=== PATIENT | female | born 1980 | race Caucasian/White ===

== ENCOUNTER → 2016-05-28 | Day surgery (SDC) | payer OTHER ==
[2016-05-12 14:46] LABS: BASO % 0.3 %; BASO ABS # 0.02 K/uL (0-0.2); COMPLETE YES; EOS % 1.6 %; HEMATOCRIT 39.8 % (37-47); IG% 0.2 %; LYMPH % 34.8 %; LYMPH ABS # 2.16 K/uL (1.2-3.4); MEAN CELL VOLUME 94.1 fL (80-100); MEAN CORPUSCULAR HEMOGLOBIN 31.7 pg (25-34); MEAN CORPUSCULAR HGB CONC 33.7 g/dl (32-36); MEAN PLATELET VOLUME 9.6 fL (7.4-10.4); MONO % 8.2 %; NEUT % 54.9 %; PLATELET COUNT 221 K/uL (130-400); RED BLOOD COUNT 4.23 M/uL (4.2-5.4)
--- NOTE | 2016-05-12 18:37 | HISTORY & PHYSICAL EXAMINATION ---
DATE OF ADMISSION: 05/28/2016 ADMITTING DIAGNOSIS: Desired permanent surgical sterilization. ADMISSION HISTORY: The patient is a 35-year-old 2, para 2 who is admitted for laparoscopic tubal ligation. The patient adamantly desires no further childbearing capacity and wishes for surgical sterilization. PAST MEDICAL HISTORY: OB: x2. PILE DRIVER: As above. MEDICAL: Migraine headaches. SURGICAL: None. ALLERGIES: PENICILLIN. SOCIAL HISTORY: No smoking. FAMILY HISTORY: Noncontributory. REVIEW OF SYSTEMS: As per HPI. ADMISSION PHYSICAL EXAMINATION: GENERAL: Shows a pleasant female in no acute distress. VITAL SIGNS: Blood pressure 108/78, height of 5 feet, weight of 140 pounds. HEENT: Unremarkable. NECK: Supple. LUNGS: Clear. HEART: With a regular rhythm and rate. ABDOMEN: Soft, nontender. PELVIC: Shows normal external genitalia, vaginal wall pink and rugated. Cervical os multiparous and closed. Bimanual examination shows an anterior mobile uterus. Adnexa show no palpable masses. RECTAL: Confirmatory. EXTREMITIES: Shows no deep calf tenderness. NEUROLOGIC: Grossly intact. IMPRESSION: A 35-year-old 2, para 2 for permanent surgical sterilization. PLAN: Risks, benefits and alternatives to the surgery have been discussed. While the benefits will be permanent surgical sterilization, the risks are bleeding, infection, inadvertent injury to internal organs requiring additional surgery and treatment, regret, and failure of the procedure itself, failure rate quoted at 1-3%. The patient understands that. Permit has been signed and she wishes to proceed.
[2016-05-14 15:22] VITALS: Ht 151.1 cm; Wt 61.4 kg
[~2016-05-28] VITALS: Ht 151.1 cm; Wt 61.4 kg
[~2016-05-28] MED LIST: AMIT10TA6 PO; ATROPINE SULFATE 0.1 MG/ML 5ML SYR IV PRN; DEXAMETHASONE SOD INJ 4 MG/ML VIAL IV PRN; DEXAMETHASONE SOD INJ 4 MG/ML VIAL ONE; EpHEDrine SULFATE INJ 50 MG/ML AMP IV PRN; FENTANYL CITRATE INJ 50 MCG/1 ML 2 ML VIAL IV PRN; FENTANYL CITRATE INJ 50 MCG/1 ML 2 ML VIAL ONE; GLYCOPYRROLATE INJ 0.2 MG/ML VIAL ONE; IBUPROFEN 600 MG TAB PO PRN; KETOROLAC TROMETHAMINE 30 MG/ML VIAL IV. PRN; LABETALOL HCL IV 5 MG/ML 20ML IV PRN; LACTATED RINGER'S 1000ML 1,000 ML IV SCH; LIDOCAINE HCL 2% 2 ML VIAL (20MG/ML) ONE; METOCLOPRAMIDE HCL INJ 5 MG/ML 2 ML VIAL IV PRN; MIDAZOLAM HCL 1 MG/ML 2ML VIAL ONE; MoRPHine SULFATE 10 MG/ML CARP/VIAL IV PRN; NEOSTIGMINE METHYLSULFATE 5 MG/5 ML SYR ONE; ONDANSETRON INJ 2 MG/ML 2 ML VIAL IV PRN; ONDANSETRON INJ 2 MG/ML 2 ML VIAL ONE; OXYC-57 PO; OXYCODONE/ACETAMINOPHEN 5-325 TAB PO PRN; PHENYLEPHRINE 100MCG/ML 5ML SYR IV PRN; PROPOFOL IV EMULSION 10 MG/ML 20 ML VIAL IV ONE; ROCURONIUM BROMIDE 10 MG/ML 5 ML VIAL ONE; SODIUM CHLORIDE 0.9% 1000ML 1,000 ML IV SCH
--- NOTE | 2016-05-28 07:59 | History & Physical Bridge - SC ---
H&P Re-Evaluation Bridge Note: I have examined the patient, reviewed the History & Physical and in the interval since the performance of the History & Physical I have noted the following changes of clinical significance: No changes noted
--- NOTE | 2016-05-28 08:44 | [facility] Post Operative Brief Note ---
Immediate Operative Summary Operative Date May 28, 2016. Pre-Operative Diagnosis Desires Sterilization Post-Operative Diagnosis Same Procedure(s) Performed Laparoscopic Tubal Sterilization Surgeon Dr Bonilla [employer] House Broker Surgeon(s) None Estimated Blood Loss Minimal Findings Normal appearing uterus, tubes and ovaries bilaterally. Bilateral fulguration of tubes in proximal 1/3 with three contiguous mares till resistance met 0 Fluids (cc crystalloids) 600 Specimens None Drains None Anesthesia General Complication(s) None Disposition Recovery Room / PACU
--- NOTE | 2016-05-28 08:45 | Discharge Instructions-SurgCtr ---
Discharge Instructions Date of Service May 28, 2016. Visit Reason for Visit: Desires Sterilization Discharge Discharge Diagnosis / Problem: same Discharge Goals Goal(s): Therapeutic intervention Activity Recommendations Activity Limitations: as noted below Anesthesia . Post Anesthesia Instructions: If you have had General Anesthesia or IV Sedation: * Do not drive today. * Resume driving when surgeon permits. * Do not make important decisions or sign legal documents today. * Call surgeon for: 1. Temperature elevations greater than 101 degrees F. 2. Uncontrollable pain. 3. Excessive bleeding. 4. Persistent nausea and vomiting. 5. Medication intolerance (nausea, vomiting or rash). * For nausea and vomiting use only clear liquids such as: tea, soda, bouillon until nausea subsides, then gradually increase diet as tolerated. * If you have any concerns or questions, call your surgeon's office. If physician is unavailable and it is an emergency, call 911 or go to the nearest emergency room. . Instructions / Follow-Up Instructions / Follow-Up ACTIVITY RECOMMENDATIONS: * Rest the first 2-3 days. You should be back to your normal activity levels by day 3. * No heavy lifting for 2 weeks. * No intercourse, tampons or douching for 1-2 weeks. * You may shower the next day. * Do not drive anytime that you are taking narcotic pain medicines. RETURN TO SCHOOL/WORK: * May return to school or work after 2-3 days. DIET: Nausea may occur in the immediate post-operative period. If so, take clear liquids such as tea, bouillon, apple juice until all nausea has subsided, then resume usual diet. MEDICATIONS: Resume previous medications unless instructed otherwise by your surgeon. Ibuprofen 200mg 2-3 tablets every 4-6 hours as needed -- OR -- Aleve 2 tablets every 8-12 hours as needed for post-operative discomfort Medications are over the counter. Tylenol may be used if above medications are contraindicated or not preferred. Medication should be taken with food or milk. Do not take on an empty stomach. SPECIAL CARE INSTRUCTIONS: * Check temperature twice daily for one week. report any elevation over 101 degrees. * You may experience some vagina spotting and/or bleeding. This is normal for 1 -2 weeks and should not be heavier than a normal period. If it is unusual in amount, call your physician. * Post-operative discomfort may consist of a sore throat, a "bloated" feeling and pain in the shoulders. these are normal symptoms, which usually only last for 2-3 days. * Remove band-aids tomorrow and shower. There is no need to replace band-aids unless there is drainage or discomfort. FOLLOW UP VISIT: Call your doctor's office for a post-operative 2 week visit if not already scheduled. Diet Recommendations Home Diet: resume previous diet Procedures Procedures Performed: Laparoscopic Tubal Sterilization Pending Studies Studies pending at discharge: no Medical Emergencies . Who to Call and When: Medical Emergencies: If at any time you feel your situation is an emergency, please call 911 immediately. . Non-Emergent Contact Non-Emergency issues call your: Slot Shift Manager Call Non-Emergent contact if: temperature is above 100.5, your pain is not controlled, wound has increased drainage, wound has increased redness . . "Provider Documentation" section prepared by Darrin Bonilla. [place] Drug Monitoring Program Drug Monitoring Findings: None
--- NOTE | 2016-05-28 08:51 | OPERATIVE REPORT ---
DATE OF OPERATION: 05/28/2016 PREOPERATIVE DIAGNOSES: Desired permanent surgical sterilization. POSTOPERATIVE DIAGNOSIS: Same. PROCEDURE PERFORMED: Laparoscopic tubal ligation. SURGEON: Dr. Darrin Bonilla. ANESTHESIA: General. FINDINGS: Laparoscopic examination of the pelvis showed normal appearing uterus, tubes, and ovaries bilaterally. Bilateral fulguration of fallopian tube in the proximal third in 3 contiguous mares until resistance met 0. PROCEDURE IN DETAIL: The patient was taken to the operating room and after general anesthesia, was placed in dorsal lithotomy position and draped and prepped in usual fashion. Bladder was drained of any residual urine. Single tooth tenaculum was used to grasp the anterior lip of the cervix. The acorn cannula was inserted into the cervical os and fastened to the tenaculum. Small subumbilical incision was made and the Veress needle introduced into the pelvic cavity, which was then insufflated with 3 liters of CO2. Veress needle was removed and sharp trocar was used to introduce the laparoscope. Pelvic organs were visualized and then under direct laparoscopic guidance, a suprapubic 5-mm trocar was placed. Stirring probe was inserted. Pelvic organs were visualized with the description as above. Stirring probe was removed and the bipolar cautery instrument was inserted in through the suprapubic trocar. The fallopian tubes were cauterized bilaterally in 3 contiguous mares until resistance met 0. Hemostasis was present. The CO2 was allowed to escape from the pelvic cavity. The suprapubic and subumbilical trocars were removed under direct laparoscopic guidance. The incisions were closed with 4-0 Vicryl subcuticular stitches. Sterile dressing was applied. Tenaculum and acorn cannula were removed from the cervix. The patient taken out of dorsal lithotomy to recovery room in satisfactory condition. I attest to the content of the Intraoperative Record and any orders documented therein. Any exceptio ns are noted below.
--- NOTE | 2016-05-28 08:54 | Medical Student: [facility] ---
Immediate Operative Summary Operative Date May 28, 2016. Pre-Operative Diagnosis Encounter for Sterilization Post-Operative Diagnosis same Procedure(s) Performed Laparoscopic Tubal Sterilization via electrosurgical bipolar dessication Surgeon Dr. Darrin Bonilla Cylinder Honer Surgeon(s) none Estimated Blood Loss minimal Findings Normal appearing uterus, tubes and ovaries bilaterally; post procedure bilateral fulguration of proximal 1/3 of tube after electrosurgery to 3 contiguous sites until resistance met Fluids (cc crystalloids) 600cc Lactated Ringers Specimens none Drains none Anesthesia General via Entotracheal Intubation Complication(s) None Disposition Recovery Room / PACU
--- NOTE | 2016-05-28 09:51 | Anesthesia Progress Nt - [facility] ---
Anesthesia Post Op Note Date & Time May 28, 2016 at 09:51 Vital Signs Pain Intensity: 2 Vital Signs Past 12 Hours Date Time Temp Pulse Resp B/P Pulse Ox O2 Delivery O2 Flow Rate FiO2 05/28/16 09:45 75 13 05/28/16 09:45 73 13 95 05/28/16 09:44 36.4 78 16 97/64 95 Room Air 05/28/16 09:44 97/64 05/28/16 09:40 68 17 94 05/28/16 09:40 68 17 05/28/16 09:39 96/63 05/28/16 09:35 86 11 05/28/16 09:35 92 11 95 05/28/16 09:34 99/71 05/28/16 09:32 74 12 94 05/28/16 09:32 75 12 05/28/16 09:31 68 19 05/28/16 09:31 68 19 94 05/28/16 09:29 93/62 05/28/16 09:26 75 13 100 05/28/16 09:26 36.4 67 16 93/62 96 Room Air 05/28/16 09:26 72 13 05/28/16 09:24 91/61 05/28/16 09:24 92/57 05/28/16 09:23 91/59 05/28/16 09:21 62 12 05/28/16 09:21 62 12 100 05/28/16 09:20 93/63 05/28/16 09:17 65 13 05/28/16 09:17 67 13 100 05/28/16 09:14 94/70 05/28/16 09:12 68 11 05/28/16 09:12 71 11 100 05/28/16 09:09 91/59 05/28/16 09:07 66 13 100 05/28/16 09:07 66 13 05/28/16 09:04 94/61 05/28/16 09:02 69 19 100 05/28/16 09:02 69 19 05/28/16 09:00 92/70 05/28/16 08:58 36.2 98 20 100/64 98 Mask 8 05/28/16 08:57 93 19 05/28/16 08:57 92 19 100 05/28/16 06:45 36.9 90 16 116/82 100 Room Air Notes Mental Status: alert / awake / arousable, participated in evaluation Pt Amnestic to Procedure: Yes Nausea / Vomiting: adequately controlled Pain: adequately controlled Airway Patency, RR, SpO2: stable & adequate BP & HR: stable & adequate Hydration State: stable & adequate Anesthetic Complications: no major complications apparent
[2016-05-28 10:25] VITALS: TEMP 36.5
[2016-05-28 10:44] VITALS: BP 100/66; PULSE 67; O2SAT 100
== END | disposition home or self-care (01) ==
LOC: X.SURG 06:42
PROVIDERS: ATTEND Obstetrics & Gynecology
DX: Z30.2 Encounter for sterilization (principal); Z88.0 Allergy status to penicillin

== ENCOUNTER → 2017-04-09 | Outpatient (CLI) | payer OTHER ==
[~2017-04-09] MED LIST changes: -ATROPINE SULFATE 0.1 MG/ML 5ML SYR IV PRN; -DEXAMETHASONE SOD INJ 4 MG/ML VIAL IV PRN; -DEXAMETHASONE SOD INJ 4 MG/ML VIAL ONE; -EpHEDrine SULFATE INJ 50 MG/ML AMP IV PRN; -FENTANYL CITRATE INJ 50 MCG/1 ML 2 ML VIAL IV PRN; -FENTANYL CITRATE INJ 50 MCG/1 ML 2 ML VIAL ONE; -GLYCOPYRROLATE INJ 0.2 MG/ML VIAL ONE; -IBUPROFEN 600 MG TAB PO PRN; -KETOROLAC TROMETHAMINE 30 MG/ML VIAL IV. PRN; -LABETALOL HCL IV 5 MG/ML 20ML IV PRN; -LACTATED RINGER'S 1000ML 1,000 ML IV SCH; -LIDOCAINE HCL 2% 2 ML VIAL (20MG/ML) ONE; -METOCLOPRAMIDE HCL INJ 5 MG/ML 2 ML VIAL IV PRN; -MIDAZOLAM HCL 1 MG/ML 2ML VIAL ONE; -MoRPHine SULFATE 10 MG/ML CARP/VIAL IV PRN; -NEOSTIGMINE METHYLSULFATE 5 MG/5 ML SYR ONE; -ONDANSETRON INJ 2 MG/ML 2 ML VIAL IV PRN; -ONDANSETRON INJ 2 MG/ML 2 ML VIAL ONE; -OXYCODONE/ACETAMINOPHEN 5-325 TAB PO PRN; -PHENYLEPHRINE 100MCG/ML 5ML SYR IV PRN; -PROPOFOL IV EMULSION 10 MG/ML 20 ML VIAL IV ONE; -ROCURONIUM BROMIDE 10 MG/ML 5 ML VIAL ONE; -SODIUM CHLORIDE 0.9% 1000ML 1,000 ML IV SCH
== END | disposition home or self-care (01) ==
LOC: C.PAPS 15:08
PROVIDERS: ATTEND Obstetrics & Gynecology
DX: Z12.4 Encounter for screening for malignant neoplasm of cervix (principal)